=== PATIENT | female | born 1970 | race Caucasian/White ===

== ENCOUNTER → 2025-09-27 | Emergency (ER) | payer OTHER ==
[~2025-09-27] MED LIST: Lisinopril 2.5 MG TAB PO SCH; Meloxicam 15 MG TAB PO SCH; Pregabalin 25 MG CAP PO SCH
[2025-09-27 13:15] LABS: #Basophils 0.04 10x3/uL (0.0-0.2); #Eosinophils 0.09 10x3/uL (0.0-0.7); #Monocytes 0.59 10x3/uL (0.11-0.59); #Neutrophils 3.71 10x3/uL (1.40-6.50); %Basophils 0.5 % (0.0-1.0); %Eosinophils 1.2 % (0.0-10.0); %Lymphocytes 41.0 % (21.0-51.0); %Monocytes 7.8 % (0.0-10.0); %Neutrophils 49.1 % (42.0-75.0); Hematocrit 40.0 % (36.0-47.0); Hemoglobin 13.1 g/dL (12.0-16.0); Mean Corpuscular Hemoglobin 31.5 pg (27.0-31.0); Mean Corpuscular Volume 96.2 fL (78.0-98.0); Platelet Count 261 10x3/uL (130-400); Red Blood Cell (RBC) Count 4.16 mill/uL (4.20-5.40); White Blood Cell (WBC) Count 7.56 10x3/uL (4.8-10.8)
[2025-09-27 13:31] LABS: ALT (SGPT) 16 U/L (Less than 34); AST (SGOT) 29 U/L (11-34); Albumin 3.9 g/dL (3.1-4.5); Alkaline Phosphatase 53 U/L (40-110); Anion Gap 12 mmol/L (10-20); BUN (Urea Nitrogen) 22 mg/dL (9.8-20.1); Bilirubin, Total 0.4 mg/dL (0.3-1.2); Calc. Creatinine Clearance 0 mL/min (70-130); Calcium 9.0 mg/dL (7.8-10.44); Carbon Dioxide 25 mmol/L (22-29); Chloride 106 mmol/L (98-107); Globulin 2.9 g/dL (2.4-3.5); Glucose 116 mg/dL (70-105); Potassium 3.9 mmol/L (3.5-5.1); Sodium 139 mmol/L (136-145)
[2025-09-27 19:15] LABS: Acetaminophen Less than 10 mcg/mL (Less than 10); Salicylate Less than 8.0 mg/dL (Less than 8.0)
[2025-09-27 19:49] LABS: Bacteria/HPF None Seen HPF (None Seen); CAUTI Indications for Culture Alt mental st,lethar; Cocaine Metabolite Screen Negative (Negative); Glucose, Urine (Dipstick) Greater than 1000 mg/dL (Negative); Leukocyte Negative Leu/uL (Negative); Protein, Urine (Dipstick) Negative (Neg-Trace); RBC/HPF 0-3 HPF (0-3); Specific Gravity, Urine 1.043 (1.002-1.036); THC/Cannabinoid Screen PRELIM POSITIVE (Negative); Tricyclic Screen Negative (Negative); WBC/HPF 0-3 HPF (0-3)
[2025-09-27 19:51] LABS: Urine Culture Reflex No No
== END ==
LOC: ERS 11:59
DX: R45.851 Suicidal ideations (principal); R56.9 Unspecified convulsions; E11.40 Type 2 diabetes mellitus with diabetic neuropathy, unspecified; F17.210 Nicotine dependence, cigarettes, uncomplicated; T42.1X6A Underdosing of iminostilbenes, initial encounter; Z91.148 Patient's other noncompliance with medication regimen for other reason
CPT/HCPCS: 36415; 70450; 80183; 80306; 80307; 83605